=== PATIENT | female | born 1950 | race African-American/Black ===

== ENCOUNTER 2021-07-30 15:46 | Inpatient (IN) | payer MEDICARE ==
[~2021-07-30] VITALS: Ht 170.2 cm; Wt 67.7 kg
[2021-07-30] MEDS ORDERED: SODIUM CHLORIDE 0.9% 1,000 ML IV ONE (16:30)
[2021-07-30 16:50] LABS: BASOPHILS % 0.8 % (0.0-2.0); EOSINOPHILS % 1.9 % (0.0-5.0); HEMATOCRIT. 40.6 % (36.0-48.0); HEMOGLOBIN. 13.4 g/dL (12.0-16.0); LYMPHOCYTES % 63.4 % (20.0-50.0); MEAN CORPUSCULAR HEMOGLOBIN 27.7 pg (28.0-32.0); MONOCYTES % 9.7 % (2.0-8.0); NEUTROPHILS % 24.2 % (40.0-76.0); RED BLOOD CELL COUNT 4.83 mill/uL (4.2-5.4); RED CELL DISTRIBUTION WIDTH 13.4 % (11.6-14.6)
[2021-07-30 16:59] LABS: CHLORIDE 105 mEq/L (98-107)
[2021-07-30 17:15] LABS: MEAN PLATELET VOLUME 8.5 fl (7.4-10.4); PLATELET 169 x1000/uL (130-400)
[2021-07-30 20:14] LABS: CLARITY URINE CLOUDY (CLEAR); COLOR URINE YELLOW (YELLOW); KETONES URINE NEGATIVE (NEGATIVE); LEUKOCYTE ESTERASE URINE TRACE (NEGATIVE); PH URINE 6.5 (4.5-8.0); PROTEIN URINE NEGATIVE (NEGATIVE); SPECIFIC GRAVITY URINE 1.007 (1.005-1.030)
[2021-07-30 20:15] LABS: NITRITE URINE NEGATIVE (NEGATIVE); OCCULT BLOOD URINE NEGATIVE (NEGATIVE); UROBILINOGEN URINE 0.2 E.U./dL (0.2-1.0)
[2021-07-30] MEDS ORDERED: IPRATROPIUM/ALBUTEROL 0.5-3(2.5)MG/3ML NEB HHN PRN (22:30)
[2021-07-30] MEDS ORDERED: GUAIFENESIN 200MG/10ML SUGAR FREE UDC PO PRN (22:30)
[2021-07-30] MEDS ORDERED: DIPHENHYDRAMINE 50MG/ML VIAL IV PRN (22:30)
[2021-07-30] MEDS ORDERED: DOCUSATE SODIUM 100MG CAPSULE PO PRN (22:30)
[2021-07-30] MEDS ORDERED: MORPHINE SULFATE 2 MG/ML CPJ (NOT FOR IM USE) IV PRN (22:30)
[2021-07-30] MEDS ORDERED: MAGNESIUM/ALUMINUM HYDROXIDE/SIMETHICONE 30ML UDC PO PRN (22:30)
[2021-07-30] MEDS ORDERED: ONDANSETRON HCL 4MG/2ML INJ IV PRN (22:30)
[2021-07-30 23:29] VITALS: BP 160/89
[2021-07-30] MEDS: HYDROCODONE/ACETAMINOPHEN 5/325MG TABLET PO PRN (23:56)
[2021-07-30] MEDS: CLONIDINE 0.1MG TABLET PO PRN (23:57)
[2021-07-31] MEDS ORDERED: ALBUTEROL 6.7GM HFA INHALER ORI PRN (03:15)
[2021-07-31 04:00] VITALS: BP 148/75
[2021-07-31] MEDS ORDERED: HYDR-3735 PO (05:26)
[2021-07-31] MEDS ORDERED: POTA10TA11 PO (05:26)
[2021-07-31] MEDS ORDERED: FURO40TA5 PO (05:26)
[2021-07-31] MEDS ORDERED: VENL150C52 PO (05:26)
[2021-07-31] MEDS ORDERED: TRAZ-252 PO (05:26)
[2021-07-31] MEDS ORDERED: MIRT-89 PO (05:26)
[2021-07-31] MEDS ORDERED: LOSA25TA26 PO (05:26)
[2021-07-31] MEDS ORDERED: MELO-106 PO (05:26)
[2021-07-31] MEDS ORDERED: BENZ1TAB7 PO (05:26)
[2021-07-31] MEDS ORDERED: RISP1TAB97 PO (05:26)
[2021-07-31] MEDS: SODIUM CHLORIDE 0.9% INJ 3ML FLUSH IVF SCH ×3 (06:04→20:57)
[2021-07-31 07:37] VITALS: BP 153/88
[2021-07-31 08:08] LABS: BASOPHILS % 0.4 % (0.0-2.0); EOSINOPHILS % 0.5 % (0.0-5.0); HEMATOCRIT. 33.7 % (36.0-48.0); HEMOGLOBIN. 11.1 g/dL (12.0-16.0); LYMPHOCYTES % 49.4 % (20.0-50.0); MEAN CORPUSCULAR HEMOGLOBIN 27.8 pg (28.0-32.0); MEAN CORPUSCULAR VOLUME 84.4 fL (81.0-99.0); MEAN PLATELET VOLUME 7.3 fl (7.4-10.4); MONOCYTES % 10.4 % (2.0-8.0); NEUTROPHILS % 39.3 % (40.0-76.0); PLATELET 231 x1000/uL (130-400); RED BLOOD CELL COUNT 3.99 mill/uL (4.2-5.4); RED CELL DISTRIBUTION WIDTH 13.4 % (11.6-14.6)
[2021-07-31 08:25] LABS: CHLORIDE 110 mEq/L (98-107)
[2021-07-31] MEDS: ENOXAPARIN 40MG/0.4ML SYR SUBCUT SCH (08:29)
[2021-07-31] MEDS ORDERED: POTASSIUM CHLORIDE 20MEQ TABLET SR PO SCH (10:00)
[2021-07-31 11:31] VITALS: BP_SYST 124; BP_SYST 128; BP_DIAS 66; BP_DIAS 72
[2021-07-31 12:26] LABS: T4 FREE 1.12 ng/dL (0.76-1.46)
[2021-07-31 12:30] LABS: CREATINE KINASE MB FRACTION 1.2 ng/mL (0.5-3.6)
[2021-07-31] MEDS: ALBUTEROL 6.7GM HFA INHALER ORI SCH ×2 (12:55→17:31)
[2021-07-31] MEDS: BENZONATATE 100MG CAPSULE PO SCH ×2 (13:47→20:57)
[2021-07-31 15:37] VITALS: BP 143/91
[2021-07-31 16:20] LABS: CREATINE KINASE MB FRACTION 1.9 ng/mL (0.5-3.6)
[2021-07-31] MEDS: CLONIDINE 0.1MG TABLET PO PRN (20:12)
[2021-07-31 20:27] VITALS: BP_SYST 172; BP_SYST 173; BP_SYST 180; BP_DIAS 102; BP_DIAS 107; BP_DIAS 98
[2021-07-31] MEDS: GUAIFENESIN-DM 200MG-20MG/10ML UDC PO PRN (20:56)
[2021-07-31] MEDS ORDERED: NALOXONE HCL 0.4MG/ML VIAL IV PRN (22:00)
[2021-08-01 04:00] VITALS: BP 160/85
[2021-08-01] MEDS: BENZONATATE 100MG CAPSULE PO SCH ×3 (06:31→21:24)
[2021-08-01] MEDS: ALBUTEROL 6.7GM HFA INHALER ORI SCH ×4 (06:32→18:40)
[2021-08-01] MEDS: SODIUM CHLORIDE 0.9% INJ 3ML FLUSH IVF SCH ×3 (06:43→21:24)
[2021-08-01 07:00] VITALS: BP_SYST 173; BP_SYST 176; BP_SYST 180; BP_DIAS 86; BP_DIAS 98; BP_DIAS 99
[2021-08-01] MEDS: HYDRALAZINE 20MG/ML VIAL IV PRN ×2 (07:29→13:35)
[2021-08-01 08:00] VITALS: BP 157/77
[2021-08-01] MEDS: ENOXAPARIN 40MG/0.4ML SYR SUBCUT SCH (09:26)
[2021-08-01] MEDS: METOPROLOL TARTRATE 25MG TABLET PO SCH ×2 (09:26→21:25)
[2021-08-01] MEDS: GUAIFENESIN-DM 200MG-20MG/10ML UDC PO PRN ×2 (09:30→21:29)
[2021-08-01 12:00] VITALS: BP_SYST 165; BP_SYST 176; BP_SYST 188; BP_DIAS 110; BP_DIAS 111; BP_DIAS 81
[2021-08-01] MEDS ORDERED: LOSARTAN POTASSIUM 50 MG TABLET PO SCH (12:30)
[2021-08-01] MEDS ORDERED: IOHEXOL-350 100 ML BOTTLE ONE (14:30)
[2021-08-01 16:00] VITALS: BP 150/91
[2021-08-01] MEDS: LORAZEPAM 2MG/ML CPJ IV PRN (16:49)
[2021-08-01] MEDS: ACETAMINOPHEN 325MG TABLET PO PRN (18:40)
[2021-08-01 20:00] VITALS: BP_SYST 160; BP_SYST 163; BP_SYST 172; BP_DIAS 72; BP_DIAS 75; BP_DIAS 91
[2021-08-01] MEDS: BENZTROPINE MESYLATE 1MG TABLET PO SCH (21:24)
[2021-08-01] MEDS: ALPRAZOLAM 0.25 MG TABLET PO SCH (21:30)
[2021-08-02 00:05] VITALS: BP_SYST 142; BP_SYST 158; BP_DIAS 65
[2021-08-02] MEDS: ALBUTEROL 6.7GM HFA INHALER ORI SCH ×4 (00:31→18:12)
[2021-08-02 04:00] VITALS: BP 159/62
[2021-08-02] MEDS: SODIUM CHLORIDE 0.9% INJ 3ML FLUSH IVF SCH ×3 (05:46→21:26)
[2021-08-02] MEDS: BENZONATATE 100MG CAPSULE PO SCH ×3 (05:48→21:25)
[2021-08-02] MEDS: ALPRAZOLAM 0.25 MG TABLET PO SCH ×3 (05:48→21:25)
[2021-08-02 08:00] VITALS: BP 184/108
[2021-08-02] MEDS: ENOXAPARIN 40MG/0.4ML SYR SUBCUT SCH (09:48)
[2021-08-02] MEDS: LOSARTAN POTASSIUM 50 MG TABLET PO SCH ×2 (09:49→21:26)
[2021-08-02] MEDS: BENZTROPINE MESYLATE 1MG TABLET PO SCH ×2 (09:49→21:25)
[2021-08-02] MEDS: METOPROLOL TARTRATE 25MG TABLET PO SCH ×2 (09:49→21:25)
[2021-08-02] MEDS: GUAIFENESIN-DM 200MG-20MG/10ML UDC PO PRN (10:19)
[2021-08-02 12:00] VITALS: BP 183/96
[2021-08-02] MEDS: ACETAMINOPHEN 325MG TABLET PO PRN ×2 (13:06→23:06)
[2021-08-02] MEDS: HYDRALAZINE HCL 50MG TABLET PO SCH ×2 (13:06→21:26)
[2021-08-02 16:00] VITALS: BP_SYST 152; BP_SYST 154; BP_SYST 156; BP_DIAS 93; BP_DIAS 95; BP_DIAS 99
[2021-08-02] MEDS: CLONIDINE 0.1MG TABLET PO PRN (18:12)
[2021-08-02 20:00] VITALS: BP 148/88
[2021-08-02] MEDS: LORAZEPAM 2MG/ML CPJ IV PRN (23:17)
[2021-08-03] VITALS: BP 152/78
[2021-08-03] MEDS: ALBUTEROL 6.7GM HFA INHALER ORI SCH ×3 (00:30→14:38)
[2021-08-03] MEDS: GUAIFENESIN-DM 200MG-20MG/10ML UDC PO PRN ×2 (02:41→10:48)
[2021-08-03] MEDS: HYDROCODONE/ACETAMINOPHEN 5/325MG TABLET PO PRN (02:41)
[2021-08-03 04:00] VITALS: BP 147/85
[2021-08-03] MEDS: ALPRAZOLAM 0.25 MG TABLET PO SCH ×2 (06:34→14:34)
[2021-08-03] MEDS: HYDRALAZINE HCL 50MG TABLET PO SCH ×2 (06:34→14:38)
[2021-08-03] MEDS: SODIUM CHLORIDE 0.9% INJ 3ML FLUSH IVF SCH ×2 (06:34→14:38)
[2021-08-03] MEDS: BENZONATATE 100MG CAPSULE PO SCH ×2 (06:34→14:34)
[2021-08-03 08:00] VITALS: BP 141/82
[2021-08-03] MEDS: ENOXAPARIN 40MG/0.4ML SYR SUBCUT SCH (08:55)
[2021-08-03] MEDS: METOPROLOL TARTRATE 25MG TABLET PO SCH (08:55)
[2021-08-03] MEDS: BENZTROPINE MESYLATE 1MG TABLET PO SCH (08:55)
[2021-08-03] MEDS: LOSARTAN POTASSIUM 50 MG TABLET PO SCH (08:55)
[2021-08-03 11:26] LABS: BG CARBOXYHEMOGLOBIN 0.7 % (0.5-1.5); BG DEOXYHEMOGLOBIN 2.7 % (0.0-5.0); BG HCO3 ACT 24.8 mmol/L (22.0-26.0); BG METHEMOGLOBIN 0.2 % (0.0-1.5); BG OXYGEN SATURATION 97.3 % (92.0-98.5); BG OXYHEMOGLOBIN 96.4 % (94.0-97.0); BG PCO2 36.6 mmHg (35.0-45.0); BG PH 7.448 (7.350-7.450); BG PO2 89.8 mmHg (75.0-100.0); BG SAMPLE SITE RIGHT BRACHIAL; BG TOTAL HEMOGLOBIN 12.9 g/dL (12.0-18.0); BG VENT MODE ROOM AIR
[2021-08-03 12:00] VITALS: BP 159/88
[2021-08-03] MEDS ORDERED: LOSA50TA3 MT (13:23)
[2021-08-03] MEDS ORDERED: HYDR-4135 MT (13:23)
[2021-08-03] MEDS ORDERED: METO25TA6 MT (13:23)
[2021-08-03 13:24] LABS: BASOPHILS % 0.4 % (0.0-2.0); EOSINOPHILS % 1.2 % (0.0-5.0); HEMATOCRIT. 39.6 % (36.0-48.0); HEMOGLOBIN. 12.8 g/dL (12.0-16.0); LYMPHOCYTES % 54.7 % (20.0-50.0); MEAN CORPUSCULAR HEMOGLOBIN 27.4 pg (28.0-32.0); MEAN CORPUSCULAR VOLUME 84.7 fL (81.0-99.0); MEAN PLATELET VOLUME 7.7 fl (7.4-10.4); MONOCYTES % 11.2 % (2.0-8.0); NEUTROPHILS % 32.5 % (40.0-76.0); PLATELET 288 x1000/uL (130-400); RED BLOOD CELL COUNT 4.67 mill/uL (4.2-5.4); RED CELL DISTRIBUTION WIDTH 13.7 % (11.6-14.6)
[2021-08-03 13:37] LABS: CHLORIDE 106 mEq/L (98-107)
[2021-08-03 15:42] VITALS: BP 159/86
[2021-08-03 16:00] VITALS: BP 140/86
== END 2021-08-03 17:55 | disposition home or self-care (01) | DRG 871 ==
LOC: ER 15:46 → 7WST 20:10 → EDBEDREQ 20:29 → ENRESERV 21:22
PROVIDERS: ADMIT Internal Medicine; ATTEND Internal Medicine
DX: A41.89 Other specified sepsis (principal); J12.82 Pneumonia due to coronavirus disease 2019; J96.00 Acute respiratory failure, unspecified whether with hypoxia or hypercapnia; U07.1 COVID-19; E87.6 Hypokalemia; I50.9 Heart failure, unspecified; E78.5 Hyperlipidemia, unspecified; I11.0 Hypertensive heart disease with heart failure; G90.8 Other disorders of autonomic nervous system; I71.9 Aortic aneurysm of unspecified site, without rupture; R00.1 Bradycardia, unspecified; F41.9 Anxiety disorder, unspecified; Z79.899 Other long term (current) drug therapy
CPT/HCPCS: 36415; 36600; 71045; 71275; 80053; 80061; 81003; 82375; 82550; 82553; 82805; 83036; 83735; 83880; 84439; 84443; 84484; 85025; 85379; 87426; 93005; 93970; 99285; C9803; J0360; J1200; J1650; J2060; J2405; J7030; Q9967